=== PATIENT | female | born 1960 | race African-American/Black ===

== ENCOUNTER 2016-09-08 10:52 | Emergency (ER) | payer MEDICAID ==
[~2016-09-08] VITALS: Ht 165.1 cm; Wt 54.9 kg
[~2016-09-08 10:52] MED LIST: ACETAMINOPHEN-1 EAC1 ORAL; ALBUTEROL SULFAT2 MG PO; ALBUTEROL2.5 MG/3 M HHN; ATROVENT HFA12.9 GM IH; IBUPROFEN800 MG ORAL; IMITREX50 MG PO; NEURONTIN300 MG PO; NORCO1 EA ORAL; PHENERGAN/CODE120 ML PO; PREDNISONE20 MG ORAL; XOPENEX HFA15 GM IH
[2016-09-08] MEDS ORDERED: Ketorolac 30mg Inj IV ONE (11:30)
[2016-09-08 12:17] LABS: APPEARANCE,URINE SLIGHTLY CLOUDY; KETONES,URINE NEGATIVE (NEGATIVE); LEUKOCYTE ESTERASE ,URINE 1+ (NEGATIVE); NITRITE,URINE NEGATIVE (NEGATIVE); PH,URINE 5 (4.5-8.0); PROTEIN,URINE 1+ (NEGATIVE); UROBILINOGEN,URINE 1 MG/DL (0.0-1.0)
[2016-09-08 12:21] LABS: BASOPHILS % (AUTO) 1.9 % (0.0-2.0); EOSINOPHILS % (AUTO) 1.9 % (0.0-3.0); LYMPHOCYTES % (AUTO) 44.5 % (20.0-45.0); MEAN CORPUSCULAR HEMOGLOBIN 27.4 PG (27.0-31.0); MEAN CORPUSCULAR HGB CONC 31.5 G/DL (32.0-36.0); MEAN CORPUSCULAR VOLUME 87 FL (80-99); MEAN PLATELET VOLUME 6.7 FL (6.5-10.1); MONOCYTES % (AUTO) 10.8 % (1.0-10.0); NEUTROPHILS % (AUTO) 40.9 % (45.0-75.0); PLATELET COUNT 237 K/UL (150-450); RED BLOOD COUNT 4.77 M/UL (4.20-5.40); RED CELL DISTRIBUTION WIDTH 13.1 % (11.6-14.8); WHITE BLOOD COUNT 3.8 K/UL (4.8-10.8)
--- NOTE | 2016-09-08 12:21 | Emergency Room Report ---
History of Present Illness General Chief Complaint: Pain Source: Patient Present Illness HPI The patient presents with several complaints. She feels that the circulation her hands is abnormal. They have been cold and she c/o tingling. This is been going on for several days. She also complains about left flank pain. This been going on for a few weeks. She was seen at [facility] and had a CT and then outpatient ultrasound done. They were looking for a stone and she states that the it was negative. She was treated for a urinary tract infection which she states she feels urine was not infected. She denies any fevers or chills. She does feel muscle spasms in her extremities. Her doctor did labs last week but she's not sure what they were. The patient was given a prescription for baclofen and she states that it actually made her more hopped up and she was unable to sleep. It didn't help the muscle spasms. In addition the baclofen also made her wheeze. She does have a history of asthma. She's not used an inhaler for several months. In 2013 she had a back injury. She is a cook at the time of. She states that this is more right-sided pain that radiated down her right leg. She had x-rays done in the past that showed degenerative disc disease. No h/o arthritis. Perimenopausal. Allergies: Coded Allergies: No Known Allergies (Unverified , 04/18/12) Patient History Past Medical History: see triage record Social History: Reports: smoking - prior, Denies: alcohol use, drug use Social History Narrative disabled - prior cook Reviewed Nursing Documentation: PMH: Agreed, PSxH: Agreed Nursing Documentation-PM Past Medical History: No History, Except For Hx Asthma: Yes Hx Neurological Problems: Yes - migraine Review of Systems All Other Systems: negative except mentioned in HPI Physical Exam Vital Signs Date Time Temp Pulse Resp B/P Pulse Ox O2 Delivery O2 Flow Rate FiO2 09/08/16 11:04 97.0 98 18 93/59 98 Room Air Sp02 EP Interpretation: reviewed, normal General Appearance: well appearing, no apparent distress, GCS 15 Head: normocephalic Eyes: bilateral eye PERRL, bilateral eye normal inspection ENT: moist mucus membranes Neck: supple Respiratory: chest non-tender, lungs clear, normal breath sounds Cardiovascular #1: regular rate, rhythm Cardiovascular #2: 2+ radial (R) - good capillary fill, 2+ radial (L) - good capillary fill Gastrointestinal: normal inspection, normal bowel sounds, non tender, no mass, non-distended Genitourinary: CVA tenderness (L) Musculoskeletal: digits/nails normal - though she feels they have poor circulation, gait/station normal, normal range of motion Neurologic: alert, oriented x3, motor strength/tone normal, DTRs symmetric, sensory intact, cerebellar normal, normal gait, speech normal Psychiatric: anxious Skin: normal inspection, warm/dry Medical Decision Making Diagnostic Impression: Primary Impression: Muscle spasm Additional Impressions: Elevated sedimentation rate Flank pain Adverse reaction to baclofen ER Course Patient presents with flank pain and muscle spasms. She also has problems with her circulation. Differential includes electrolyte abnormality, pyelonephritis , low back disc problems, Raynaud's amongst others. The patient will be evaluated with labs. We will also ask for records from [facility]. She will be treated with Toradol as she drove herself here. Baclofen does seem to be helping her and that other muscle relaxants that may be beneficial. Records from [facility] reviewed. CT - no stone or hydro (no other details of report). Urine at that time had 3-6 WBC. Labs remarkable for elevated ESR. Urine clear (microscopic hematuria). WBC low. Patient improved with treatment. Discussed need for evaluation of elevated ESR (rheumatologic w/u). Labs given to patient. Patient stable for outpatient observation and treatment. Laboratory Tests Test 09/08/16 12:09 White Blood Count 3.8 K/UL (4.8-10.8) L Red Blood Count 4.77 M/UL (4.20-5.40) Hemoglobin 13.1 G/DL (12.0-16.0) Hematocrit 41.5 % (37.0-47.0) Mean Corpuscular Volume 87 FL (80-99) Mean Corpuscular Hemoglobin 27.4 PG (27.0-31.0) Mean Corpuscular Hemoglobin Concent 31.5 G/DL (32.0-36.0) L Red Cell Distribution Width 13.1 % (11.6-14.8) Platelet Count 237 K/UL (150-450) Mean Platelet Volume 6.7 FL (6.5-10.1) Neutrophils (%) (Auto) 40.9 % (45.0-75.0) L Lymphocytes (%) (Auto) 44.5 % (20.0-45.0) Monocytes (%) (Auto) 10.8 % (1.0-10.0) H Eosinophils (%) (Auto) 1.9 % (0.0-3.0) Basophils (%) (Auto) 1.9 % (0.0-2.0) Erythrocyte Sedimentation Rate 60 MM/HR (0-30) H Urine Color Yellow Urine Appearance Slightly cloudy Urine pH 5 (4.5-8.0) Urine Specific Alexis 1.025 (1.005-1.035) Urine Protein 1+ (NEGATIVE) H Urine Glucose (UA) Negative (NEGATIVE) Urine Ketones Negative (NEGATIVE) Urine Occult Blood 3+ (NEGATIVE) H Urine Nitrite Negative (NEGATIVE) Urine Bilirubin Negative (NEGATIVE) Urine Urobilinogen 1 MG/DL (0.0-1.0) H Urine Leukocyte Esterase 1+ (NEGATIVE) H Urine RBC 5-10 /HPF (0 - 2) H Urine WBC 2-4 /HPF (0 - 2) Urine Squamous Epithelial Cells Moderate /LPF (NONE/OCC) H Urine Bacteria Few /HPF (NONE) Urine HCG, Qualitative Negative Sodium Level 141 mEQ/L (135-145) Potassium Level 4.6 mEQ/L (3.4-4.9) Chloride Level 101 mEQ/L (98-107) Carbon Dioxide Level 28 mEQ/L (20-30) Anion Gap 12 (5-15) Blood Urea Nitrogen 16 mg/dL (7-23) Creatinine 1.0 mg/dL (0.5-0.9) H Estimate Glomerular Filtration Rate > 60 mL/min (>60) Glucose Level 91 mg/dL (74-106) Calcium Level 10.1 mg/dL (8.6-10.2) Total Bilirubin 0.4 mg/dL (0.0-1.2) Aspartate Amino Transferase (AST) 17 U/L (5-40) Alanine Aminotransferase (ALT) 11 U/L (3-33) Alkaline Phosphatase 95 U/L (35-104) Total Protein 6.9 g/dL (6.6-8.7) Albumin 4.2 g/dL (3.5-5.2) Globulin 2.7 g/dL Albumin/Globulin Ratio 1.5 (1.0-2.7) Lipase 27 U/L (< 60) Thyroid Stimulating Hormone (TSH) 0.800 uIU/mL (0.300-4.500) Last Vital Signs Date Time Temp Pulse Resp B/P Pulse Ox O2 Delivery O2 Flow Rate FiO2 09/08/16 11:04 97.0 98 18 93/59 98 Room Air Status: improved Disposition: HOME, SELF-CARE Condition: Improved Scripts Hydrocodone Bit/Acetaminophen 5-325* (NORCO 5-325*) 1 Each Tablet 1 TAB ORAL Q6H Y for For Pain, #10 TAB 0 Refills Prov: Samm Schneider M.D. 09/08/16 Ibuprofen* (MOTRIN*) 600 Mg Tablet 600 MG ORAL Q6H Y for For Pain, #20 TAB Prov: Samm Schneider M.D. 09/08/16 Cyclobenzaprine Hcl* (FLEXERIL*) 10 Mg Tablet 10 MG ORAL TID Y for Muscle Spasm, #10 TAB Prov: Samm Schneider M.D. 09/08/16 Referrals: [facility],REFERRING (PCP) Samm Schneider M.D. Sep 08, 2016 12:21
[2016-09-08 12:25] LABS: BACTERIA,URINE FEW /HPF; SQUAMOUS EPITHELIAL CELL,UR MODERATE /LPF (NONE/OCC)
[2016-09-08 12:37] LABS: ALANINE AMINOTRANSFERASE 11 U/L (3-33); ALBUMIN/GLOBULIN RATIO 1.5 (1.0-2.7); ANION GAP 12 (5-15); ASPARTATE AMINO TRANSFERASE 17 U/L (5-40); CALCIUM 10.1 mg/dL (8.6-10.2); CARBON DIOXIDE 28 mEQ/L (20-30); CHLORIDE 101 mEQ/L (98-107); GLOMERULAR FILTRATION RATE > 60 mL/min (>60); HEMOLYSIS 6; LIPASE 27 U/L (< 60); POTASSIUM 4.6 mEQ/L (3.4-4.9); SODIUM 141 mEQ/L (135-145); TOTAL PROTEIN 6.9 g/dL (6.6-8.7)
[2016-09-08 13:20] LABS: ERYTHROCYTE SEDIMENTATION RATE 60 MM/HR (0-30)
[2016-09-08] MEDS ORDERED: NORCO 5-325 TA1 EACH ORAL (14:31)
[2016-09-08] MEDS ORDERED: IBUPROFEN600 MG ORAL (14:31)
[2016-09-08] MEDS ORDERED: CYCLOBENZAPRINE10 MG ORAL (14:31)
[2016-09-08 15:07] VITALS: BP 112/69
== END 2016-09-08 15:09 | disposition home or self-care (01) ==
LOC: EMR 11:30
DX: M62.838 Other muscle spasm (principal); R10.9 Unspecified abdominal pain; R70.0 Elevated erythrocyte sedimentation rate; T42.8X5A Adverse effect of antiparkinsonism drugs and other central muscle-tone depressants, initial encounter; Y92.9 Unspecified place or not applicable; J45.909 Unspecified asthma, uncomplicated; F17.200 Nicotine dependence, unspecified, uncomplicated
CPT/HCPCS: 36415; 80053; 81003; 81025; 83690; 84443; 85025; 85651; 96374; 99284; J1885